=== PATIENT | female | born 2000 | race Caucasian/White ===

== ENCOUNTER 2022-08-05 13:54 | Outpatient (CLI) | payer OTHER, SELFPAY ==
[2022-08-05 20:40] LABS: Chlamydia DNA Amplified* NOT DETECTED (No Detected); GC DNA Amplified* NOT DETECTED (No Detected)
== END 2022-08-05 13:55 | disposition home or self-care (01) ==
PROVIDERS: Visit Provider Registered Nurse
DX: Z11.3 Encounter for screening for infections with a predominantly sexual mode of transmission (principal)
CPT/HCPCS: 87491; 87591

== ENCOUNTER 2023-11-01 14:25 | Outpatient (CLI) | payer OTHER, SELFPAY | END 2023-11-01 14:26 | disposition home or self-care (01) | LOC: NFLDREF 14:26 | PROVIDERS: PCP Registered Nurse; Visit Provider Registered Nurse | DX: N92.6 Irregular menstruation, unspecified (principal); Z13.29 Encounter for screening for other suspected endocrine disorder | CPT/HCPCS: 84443 ==